=== PATIENT | female | born 1995 | race Caucasian/White ===

== ENCOUNTER 2018-11-21 12:08 | Emergency (ER) | payer BC, OTHER ==
[2018-11-21 12:56] VITALS: BP 138/68
--- NOTE | 2018-11-21 13:34 | UC ---
Throat Pain/Nasal Rufus HPI - HPI Summary HPI Summary: She has had congestion for about a month off an on with some drainage at times. She has had some facial swelling over the left lower maxilla for a few days with some pain and tenderness. No dental pain. No ear pain. No fevers. - History of Current Complaint Chief Complaint: UCRespiratory Stated Complaint: SINUS Time Seen by Provider: 11/21/18 13:17 Hx Obtained From: Patient Hx Last Menstrual Period: 02/26/15 Onset/Duration: Gradual Onset, Lasting Days Severity: Moderate Pain Intensity: 4 Cough: None Associated Signs & Symptoms: Negative: Dysphagia, FB Sensation, Drooling, Wheezing, Hoarseness, Nasal Discharge, Fever, Vomiting, Rash - Allergies/Home Medications Allergies/Adverse Reactions: Allergies Allergy/AdvReac Type Severity Reaction Status Date / Time No Known Allergies Allergy Verified 11/21/18 12:51 Home Medications: Home Medications Pnv No.95/Ferrous Fum/Folic AC [ Vitamin & Minera 28-0.8 mg] 1 tab PO DAILY 11/21/18 [History Confirmed 11/21/18] PMH/Surg Hx/FS Hx/Imm Hx Previously Healthy: Yes - Surgical History Surgical History: None - Family History Known Family History: Positive: Non-Contributory - Social History Alcohol Use: None Substance Use Type: None Smoking Status (MU): Never Smoked Tobacco Review of Systems All Other Systems Reviewed And Are Negative: Yes ENT: Positive: Sinus Pain/Tenderness Physical Exam Triage Information Reviewed: Yes Appearance: Well-Appearing, No Pain Distress, Well-Nourished Vital Signs: Initial Vital Signs Temp 99.1 F 11/21/18 12:52 Pulse 65 11/21/18 12:52 Resp 16 11/21/18 12:52 BP 138/68 11/21/18 12:52 Pulse Ox 100 11/21/18 12:52 Vital Signs Reviewed: Yes Eyes: Positive: Conjunctiva Clear ENT: Positive: Hearing grossly normal, Pharynx normal, TMs normal, Sinus tenderness - Left tenderness on the outside of the cheek at the lower margin of the maxilla at the base of the teeth. Some mild swelling and tenderness without redness. on the inside no dental carries. There are some fillings. There is no gum swelling or dental percussion tenderness. No purulent drainage posterior sinuses.. Negative: Pharyngeal erythema, Nasal congestion, Nasal drainage, TM bulging, TM dull, TM red, Tonsillar swelling, Tonsillar exudate, Trismus, Muffled voice, Uvula midline Neck: Positive: Supple, Nontender, No Lymphadenopathy Respiratory: Positive: Lungs clear, Normal breath sounds, No respiratory distress, No accessory muscle use. Negative: Respiratory distress, Decreased breath sounds, Accessory muscle use, Crackles, Rhonchi, Stridor Cardiovascular: Negative: RRR, No Murmur, Pulses Normal, Brisk Capillary Refill Abdomen Description: Positive: Soft Musculoskeletal: Positive: Strength Intact, ROM Intact, No Edema Neurological: Positive: Alert, Muscle Tone Normal. Negative: Fatigued Psychological: Positive: Age Appropriate Behavior Skin: Negative: Rashes Throat Pain/Nasal Course/Dx - Course Assessment/Plan: The swelling and tenderness is really more at the root level of the mid molars on the left maxilla. No sinus percussion tenderness. No sinus drainage. No signs of sinusitis. She agrees to return for any worsening. - Differential Dx/Diagnosis Provider Diagnosis: Facial cellulitis Discharge - Sign-Out/Discharge Documenting (check all that apply): Patient Departure All imaging exams completed and their final reports reviewed: No Studies - Discharge Plan Condition: Good Disposition: HOME Prescriptions: Amoxicillin/Clavulanate TAB* [Augmentin TAB 875*] 875 mg PO BID #20 tab Patient Education Materials: Cellulitis (DC) Referrals: Kira Lucero [Primary Care Provider] - 4 Days Additional Instructions: REturn immediately for any signs of worsening. - Billing Disposition and Condition Condition: GOOD Disposition: Home
== END 2018-11-21 13:34 | disposition home or self-care (01) ==
LOC: UCCORT 12:08
DX: L03.211 Cellulitis of face (principal)
CPT/HCPCS: 99212; G0463

== ENCOUNTER 2019-06-18 19:17 | Emergency (ER) | payer BC, OTHER ==
[2019-06-18 20:01] VITALS: BP 155/79
--- NOTE | 2019-06-18 20:10 | UC ---
Dental HPI - HPI Summary HPI Summary: 23 year old female presents with complaint of SWELLING/PAIN of her left upper tooth for the past 2 days. She denies associated fever nor chills. She has had a broken left upper tooth since November. Second incident of infection. She is currently breast feeding. - History of Current Complaint Chief Complaint: UCDentalProblem Stated Complaint: DENTAL COMPLAINT Time Seen by Provider: 06/18/19 19:57 Hx Obtained From: Patient Hx Last Menstrual Period: 02/26/15 ?: No - Breast feeding Onset/Duration: Sudden Onset, Lasting Days - two days Pain Intensity: 5 - Allergies/Home Medications Allergies/Adverse Reactions: Allergies Allergy/AdvReac Type Severity Reaction Status Date / Time No Known Allergies Allergy Verified 06/18/19 19:58 PMH/Surg Hx/FS Hx/Imm Hx Previously Healthy: Yes - Surgical History Surgical History: None - Family History Known Family History: Positive: Non-Contributory - Social History Alcohol Use: None Substance Use Type: None Smoking Status (MU): Never Smoked Tobacco Review of Systems All Other Systems Reviewed And Are Negative: Yes Constitutional: Negative: Fever, Chills Skin: Negative: Rash Eyes: Negative: Blurred Vision, Drainage ENT: Positive: Dental Pain. Negative: Sore Throat, Nasal Discharge Respiratory: Negative: Shortness Of Breath, Cough Cardiovascular: Negative: Palpitations, Chest Pain Gastrointestinal: Negative: Abdominal Pain, Vomiting, Diarrhea, Nausea Neurological: Negative: Headache, Numbness Is Patient Immunocompromised?: No Physical Exam Triage Information Reviewed: Yes Appearance: Well-Appearing, No Pain Distress Vital Signs: Initial Vital Signs Temp 97.5 F 06/18/19 19:58 Pulse 74 06/18/19 19:58 Resp 18 06/18/19 19:58 BP 155/79 06/18/19 19:58 Pulse Ox 100 06/18/19 19:58 Vital Signs Reviewed: Yes Eyes: Positive: Conjunctiva Clear ENT: Positive: Pharynx normal, TMs normal. Negative: Nasal drainage, Tonsillar swelling, Tonsillar exudate Dental: Positive: Percussion Tenderness @ - left upper gums, Other: - swelling left upper gums. Neck: Positive: Supple, Nontender, No Lymphadenopathy Respiratory: Positive: Lungs clear, Normal breath sounds Cardiovascular: Positive: RRR, No Murmur Abdomen Description: Positive: Nontender, Soft Musculoskeletal Exam: Normal Neurological Exam: Normal Skin Exam: Normal Dental Complaint Course/Dx - Differential Dx/Diagnosis Differential Diagnosis/Dx: Dental Caries, Fractured Tooth Provider Diagnosis: Dental abscess Discharge - Sign-Out/Discharge Documenting (check all that apply): Patient Departure All imaging exams completed and their final reports reviewed: No Studies - Discharge Plan Condition: Stable Disposition: HOME Prescriptions: Amoxicillin PO (*) [Amoxicillin 500 MG CAP*] 500 mg PO TID 10 Days #30 cap Patient Education Materials: Dental Abscess (ED) Referrals: Kira Lucero [Primary Care Provider] - Additional Instructions: Tylenol as needed for pain, salt water gargles. Follow-up with your dentist within the next week. - Billing Disposition and Condition Condition: STABLE Disposition: Home
== END 2019-06-18 20:18 | disposition home or self-care (01) ==
LOC: UCCORT 19:17
DX: K04.7 Periapical abscess without sinus (principal)
CPT/HCPCS: 99212; G0463